=== PATIENT | female | born 1980 | race American Indian/Alaskan Native ===

== ENCOUNTER 2025-06-08 09:57 | Emergency (ER) | payer MEDICAID, SELFPAY ==
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
[2025-06-08 10:08] VITALS: BP 142/91; PULSE 59; RESP 18; TEMP 36.8; O2SAT 100
[2025-06-08 10:09] VITALS: BMI 22.1
[2025-06-08 10:18] VITALS: BMI 24.0
[2025-06-08 10:29] VITALS: BP 142/92; PULSE 70; RESP 18; TEMP 36.9; O2SAT 97
[2025-06-08] MEDS: ACETAMINOPHEN 325 MG TABLET 650 MG PO (10:36)
[2025-06-08] MEDS: TRIMETHOPRIM/SULFA 160/800 DS TABLET 1 TAB PO (11:21)
[2025-06-08] MEDS: LIDOCAINE HCL 1% 20 ML VIAL 10 ML INFL (11:21)
[2025-06-08 11:27] LABS: HCG,Qualitative Serum Negative
[2025-06-08 11:35] LABS: Collection Type, Urine Clean Catch
[2025-06-08 11:37] LABS: Syphilis Nonreactive (Nonreactive)
[2025-06-08 11:55] LABS: Bacteria,Urine 3+; Bilirubin,Urine Negative (Negative); Blood,Urine Negative (Negative); Clarity,Urine Turbid (Clear/Hazy); Color,Urine Yellow (Lt Yel-Yel); Culture Indicated,Urine Contaminated; Glucose, Urine Negative (Negative); Ketones,Urine Negative (Negative); Leukocyte Esterase,Urine Positive (Negative); Nitrite,Urine Negative (Negative); PH,Urine 5.5 (5.0-7.0); Protein,Urine Trace (Neg - Trace); RBC,Urine 2 /hpf (0-3); Specific Gravity,Urine 1.031 (1.001-1.035); Squamous Epithelial Cell,Urine 30 /hpf (0-5); Urobilinogen,Urine Negative mg/dL (0.0-1.0); WBC,Urine 5 /hpf (0-5)
[2025-06-08 12:41] VITALS: BP 107/67; PULSE 73; RESP 18; O2SAT 100
[2025-06-08 14:28] LABS: Chlamydia trachomatis PCR Negative (Not Detect); Neisseria Gonorrhoeae DNA PCR Negative (Not Detect); Trichomonas Negative (Negative)
[2025-06-08] MEDS: cefTRIAXone 1,000 MG, LIDOCAINE 1% 20 ML 2.1 ML IM (14:36)
== END 2025-06-08 15:28 ==
PROVIDERS: Emergency Provider Emergency Medicine
DX: Z02.89 Encounter for other administrative examinations (principal); N76.4 Abscess of vulva
CPT/HCPCS: 36415; 72170; 81001; 84703; 86780; 87491; 87591; 87661; 96372; 99283; J0696; J3490; A9270